=== PATIENT | male | born 1945 | race Caucasian/White ===

== ENCOUNTER → 2024-05-09 13:53 | Outpatient (REF) | payer MEDICARE, SELFPAY | LOC: RAD 13:53 | PROVIDERS: ATTENDING PHYSICIAN Family Medicine | DX: I73.9 Peripheral vascular disease, unspecified (principal) | CPT/HCPCS: 93925 ==

== ENCOUNTER → 2024-09-17 10:27 | Outpatient (REF) | payer MEDICARE, SELFPAY | LOC: DHSLP 10:27 | PROVIDERS: ATTENDING PHYSICIAN Internal Medicine Cardiovascular Disease; FAMILY PHYSICIAN Family Medicine | DX: G47.33 Obstructive sleep apnea (adult) (pediatric) (principal) | CPT/HCPCS: 95800 ==

== ENCOUNTER 2024-10-22 00:07 | Emergency (ER) | payer MEDICARE, SELFPAY ==
[2024-10-22 00:10] VITALS: BP 157/77
[2024-10-22 03:36] VITALS: BMI 26.2
[2024-10-22 03:39] VITALS: BP 141/68
--- NOTE | 2024-10-22 03:48 | EDRN ---
Pt says he has balance problems and felt he was leaning forward while walking to the bathroom and that he was going to fall. Pt rested his hands on the bathroom counter to slow himself down. Pt thought it would be a good idea to sit on the toilet
and when he turned to do so, he lost his balance and hit his L lower back on the toilet. No head injury. Pt did not take anything for pain prior to coming to ED. Pt declined ice for pain.
--- NOTE | 2024-10-22 04:12 | ED.GENMED ---
History of Present Illness
General
Chief Complaint: Fall
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
Exam Limitations: none
Time Seen by Provider: 10/22/24 03:42
Nursing documentation reviewed up to this point in time: agreed with
History of Present Illness
History of Present Illness:
This is a 79-year-old gentleman who resides at home with his . He does note history of balance issues, has been evaluated by neurology, Dr. Clark with thus far unremarkable workup. While walking into his bathroom tonight he admits to leaning
forward, losing his balance and attempted to sit on the toilet quickly, lost his balance and fell striking his left lower back/left flank region he believes on the edge of the toilet or on the tub. He admits to moderate pain initially which has
gotten progressively worse. Pain is worse with movement, worse with deep breath but he denies shortness of breath. He denies dizziness or lightheadedness. He did not hit his head, denies loss of consciousness.
He takes no anticoagulants.
No difficulty voiding, he denies hematuria, no abdominal pain, no nausea nor vomiting. No leg pain, no weakness nor numbness.
Past History
Past History
ED Past Medical History: Other (Balance issues; lumbar DJD)
ED Past Surgical History: None
Social History
Tobacco: Non-smoker
Alcohol: None
Personal:
Living: with family
Employment: Retired
Family History
Family History: Other (Noncontributory)
Phy Exam
Physical Exam
Physical Exam:
GENERAL: 79-year-old gentleman appears his stated age, bright and alert, pleasant, appears mildly uncomfortable related to pain but easily communicative and repositions himself without assistance.
EYE: pupils equal and reactive. anicteric. The head is normocephalic, atraumatic.
NECK: Supple, nontender, full range of motion without difficulty nor pain, no significant adenopathy.
ENT: oral mucosa is moist. No rhinorrhea.
CARDIAC: Regular rate and rhythm. no murmur.
LUNGS: Clear breath sounds bilaterally, no acute respiratory distress, no wheezes/rales/rhonchi. There is a horizontal ecchymotic patch left lateral to posterior flank region with moderate local tenderness to palpation along the left inferolateral
costal margin. No palpable crepitus nor palpable bony abnormality.
ABDOMEN: Soft, nondistended, without focal tenderness, no r/g, moderate left posterolateral lower costal margin/flank tenderness to palpation with local soft tissue contusion/hematoma, normoactive BS.
NEUROLOGICAL: Alert and oriented x3, no focal neuro deficits. Motor strength is 5/5 bilaterally. Gross sensation is intact. Gait is steady.
SKIN: Warm and dry, normal color, skin intact. No rash.
MUSCULOSKELETAL: No C/C/E. peripheral pulses are full and equal b/l. No palpable tenderness.
PSYCH: Normal and appropriate interaction.
Course
Orders/Labs/Results
Orders:
Orders
10/22/24 04:11
Ice Pack-Treatment DIRECTED
Location: LEFT POST FLANK
Ketorolac [Toradol] 60 mg IM NOW STA
Ribs, Left 3 View W/PA Chest CR [CR Ribs-left 3 Vw W/pa Chest] Urgent
Comment:
Reason For Exam: FALL, LEFT POST LOWER RIB CONTUSION
10/22/24 04:26
Urinalysis Urgent
Date Specimen was Collected: 10/22/24
Time Specimen was Collected: 04:
Abnormal Lab Results
10/22/24
04:26
Urine Ketones 1+ A
(Negative)
Vital Signs
Initial and Last Documented VS:
Initial Vital Signs
Temp Pulse Resp BP Pulse Ox
97.5 F 88 20 157/77 97
10/22/24 00:10 10/22/24 00:10 10/22/24 00:10 10/22/24 00:10 10/22/24 00:10
Last Documented Vital Signs
Temp Pulse Resp BP Pulse Ox
97.5 F 70 14 121/64 97
10/22/24 00:10 10/22/24 05:29 10/22/24 05:29 10/22/24 05:29 10/22/24 05:29
MDM/Problems Addressed
Differential Diagnosis Includes:
Patient presents with fall with soft tissue contusion/hematoma to left posterior flank/distal costal region. Concern for rib fracture, renal contusion.
He remains hemodynamically stable. No respiratory distress.
Will medicate for pain with Toradol. Will add local ice. Will check left rib series with chest x-ray.
*Radiology
Radiology exam reviewed: preliminary read by ED provider (X-ray shows ninth, 10th, 11th rib fractures with small pleural effusion. No pneumothorax.)
*Pulse Oximetry
Patient hypoxic: no
*Critical Care Note
Total Time (30-74mins, 75-104mins- exclusive of procedures): Not Applicable
Update Note
Update Note:
05:30
Patient feeling improved after IM dose of Toradol.
X-ray shows fracture of ninth, 10th, 11th ribs with mild displacement of ninth rib fracture. Small pleural effusion on the left, no pneumothorax.
Urinalysis is unremarkable. Negative for blood.
Will discharge to home with prescription for diclofenac to take twice daily. I have also written a prescription for a few tramadol which he can take twice daily as needed for moderate pain. Recommend close observation by his , discussed
importance of being careful while ambulating. Continue with local ice.
Prompt follow-up with PCP for recheck.
ED Attending Note
-
Portions of this chart may have been created with voice recognition software.� Occasional wrong word or��sound alike� substitutions may have occurred due to the inherent limitations of voice recognition software.
Discharge Plan
Departure
Patient Disposition: Home (Routine Discharge)
Date of Disposition: 10/22/24
Time of Disposition: 05:32
Patient with high blood pressure during this ER visit?: No
Condition: Good
Discharge Problem:
9th, 10th, 11th rib fracture on left
Instructions: Rib fracture or bruised rib - ED discharge instructions
Prescriptions:
New
tramadol 50 mg tablet
50 mg PO BIDPRN PRN (Reason: moderate pain) Qty: 8 0RF
diclofenac sodium 75 mg tablet,delayed release (DR/EC)
75 mg PO BID PRN (Reason: pain) Qty: 30 0RF
No Action
atorvastatin 20 mg Tablet
20 mg PO QPM
cyanocobalamin (vitamin B-12) 1,000 mcg Tablet
1,000 mcg PO DAILY
Referrals:
Braden Shelton MD [Family Provider] - Call in 1-3 days for appt
Interventions
Interventions:
*Risk Screen - Suicide Last Done: 10/22/24 00:14
*General Assessment Last Done: 10/22/24 03:41
*Neglect/Abuse Screening Last Done: 10/22/24 00:13
ED- Fall Risk Assessment Last Done: 10/22/24 03:46
*ED COVID-19 Vaccine History Last Done: 10/22/24 00:20
ED-Musculoskeletal Assessment Last Done: 10/22/24 03:46
ED- Neurological Assessment Last Done: 10/22/24 03:46
ED-Skin Assessment Last Done: 10/22/24 03:46
Discharge Date and Time
Print Language: SRI LANKAN
[2024-10-22] MEDS: TORADOL 60 MG IM (04:17)
[2024-10-22 04:38] LABS: Urine Albumin Negative (Neg - Trace); Urine Bilirubin Negative (Negative); Urine Character Clear (Clear); Urine Color Yellow; Urine Glucose Negative (Negative); Urine Ketone 1+ (Negative); Urine Leukocyte Negative (Negative); Urine Nitrite Negative (Negative); Urine Occult Blood Negative (Negative); Urine Urobilinogen Negative (Neg - 1+)
[2024-10-22 05:29] VITALS: BP 121/64
== END 2024-10-22 05:45 | disposition home or self-care (01) ==
LOC: EMR 00:07
PROVIDERS: EMERGENCY PHYSICIAN Emergency Medicine; FAMILY PHYSICIAN Family Medicine
DX: S22.42XA Multiple fractures of ribs, left side, initial encounter for closed fracture (principal); W01.198A Fall on same level from slipping, tripping and stumbling with subsequent striking against other object, initial encounter
CPT/HCPCS: 99284; 96372; 71101; 81003